=== PATIENT | male | born 1950 | race Caucasian/White ===

== ENCOUNTER 2021-06-10 07:31 | Outpatient (REF) | payer MEDICARE, SELFPAY ==
--- NOTE | ~2021-06-10 | CT_ITS ---
EXAMINATION: CT SINUS WITHOUT CONTRAST CLINICAL INFORMATION: Sinusitis COMPARISON: None TECHNIQUE: Axial 2 mm thin and reformatted 2 mm thin sagittal coronal images of sinuses were obtained without contrast. This CT examination was performed using dose optimization techniques as appropriate, variously including the following: *Automated exposure control *Adjustment of mA and/or kV according to patient size (this includes techniques or standardized protocols for targeted exams where dose is matched to indication/reason for exam; i.e. extremities or head) *Use of iterative reconstruction technique DLP: 123 mGy-cm FINDINGS: FRONTAL SINUSES AND DRAINAGE PATHWAYS: There is diffuse mucoperiosteal thickening bilateral frontal sinuses. The frontoethmoidal recesses are obliterated from mucosal thickening. MAXILLARY SINUSES AND DRAINAGE PATHWAYS: There is diffuse mucoperiosteal thickening bilateral maxillary sinuses. Bilateral ostiomeatal complex is patent; however, there is mild mucoperiosteal thickening around the ostium. The bony sinus grey are intact. ETHMOID SINUSES: There is mild mucoperiosteal thickening of bilateral ethmoid sinuses. The ethmoid roofs are symmetric, with olfactory fossa depth of 4 mm on the right and 5 mm on the left. SPHENOID SINUSES AND DRAINAGE PATHWAYS: There is mild mucoperiosteal thickening of the sphenoid sinuses. The sphenoethmoidal recesses are widely patent. The carotid canals are covered by bone. NASAL CAVITY/NASOPHARYNX: The nasal cavity is clear. There is moderate nasal septal deviation/spurring to the right with a moderate size bony spur. The nasopharynx is symmetric. ADDITIONAL RELEVANT FINDINGS: No periapical disease is seen. The TMJs articulate normally. The orbits and skull base soft tissues are unremarkable. The middle ear cavities and mastoid air cells are clear. Limited evaluation demonstrates no acute intracranial findings. CT/CT sinus wo con IMPRESSION: Diffuse chronic pansinusitis with obstructed frontoethmoidal recesses. The ostiomeatal complex is patent with surrounding mucosal thickening. Moderate deviation of nasal septum to the right with a moderate size bony spur.
== END 2021-06-10 07:32 | disposition home or self-care (01) ==
LOC: HO.CT 07:31
PROVIDERS: Visit Provider Otolaryngology
DX: J31.0 Chronic rhinitis (principal); J32.9 Chronic sinusitis, unspecified
CPT/HCPCS: 70486